=== PATIENT | male | born 1975 | race Native Hawaiian/Other Pacific Islander ===

== ENCOUNTER 2016-12-10 10:10 | Emergency (ER) | payer OTHER ==
[~2016-12-10] VITALS: Ht 188 cm; Wt 119.8 kg
[2016-12-10 10:18] VITALS: TEMP 98.6
[2016-12-10 10:56] LABS: PLATELET COUNT 238 K/uL (142-355)
[2016-12-10 11:01] LABS: POTASSIUM 3.6 mmol/L (3.6-5.2); SODIUM 138 mmol/L (136-145)
[2016-12-10 11:43] VITALS: BP 152/75
== END 2016-12-10 11:47 | disposition home or self-care (01) ==
LOC: ED 10:10
DX: K29.70 Gastritis, unspecified, without bleeding (principal); B96.81 Helicobacter pylori [H. pylori] as the cause of diseases classified elsewhere
CPT/HCPCS: 80053; 85027; 86318; 93005; 99283

== ENCOUNTER 2020-02-10 19:04 | Emergency (ER) | payer OTHER ==
[~2020-02-10] VITALS: Ht 188 cm; Wt 136.1 kg
[2020-02-10 20:23] LABS: PLATELET COUNT 239 K/uL (142-355)
[2020-02-10 21:10] LABS: POTASSIUM 4.2 mmol/L (3.6-5.2); SODIUM 137 mmol/L (136-145)
[2020-02-10 21:55] VITALS: BP 168/103; TEMP 98.6
== END 2020-02-10 21:53 | disposition home or self-care (01) ==
LOC: ED 19:04
PROVIDERS: Emergency Medicine Emergency Medical Services
DX: I10 Essential (primary) hypertension (principal); R42 Dizziness and giddiness; F17.220 Nicotine dependence, chewing tobacco, uncomplicated
CPT/HCPCS: 36415; 80053; 81000; 84484; 85027; 93005; 99283

== ENCOUNTER 2021-11-10 17:21 | Emergency (ER) | payer OTHER ==
[~2021-11-10] VITALS: Ht 188 cm; Wt 129.3 kg
[2021-11-10 17:30] VITALS: BP 169/87; TEMP 96.9
== END 2021-11-10 18:12 | disposition home or self-care (01) ==
LOC: ED 17:21
DX: L25.3 Unspecified contact dermatitis due to other chemical products (principal)
CPT/HCPCS: 99282